=== PATIENT | female | born 1980 | race Hispanic/Latino ===

== ENCOUNTER 2018-10-22 09:41 | Emergency (ER) | payer SELFPAY ==
[2018-10-22 10:22] LABS: Absolute Lymphocytes (CBC) 2.4 K/uL (0.7-4.9); Absolute Monocytes 0.6 K/uL (0.1-1.3); Absolute Neutrophil 3.3 K/uL (1.8-8.0); Basophils % 0.9 % (0-1.3); Eosinophils % 2.8 % (0-4.4); Hematocrit 39.9 % (36.0-45.0); Lymphocytes % 36.3 % (15.3-44.8); MPV 7.6 fL (7.6-11.3); Monocytes % 8.7 % (3.3-12.3); RBC Red Blood Cell Count 4.42 M/uL (3.86-4.86)
[2018-10-22 10:36] LABS: Urine Blood TRACE (NEG); Urine Glucose NEGATIVE (NEG); Urine Protein NEGATIVE (NEG); Urine Specific Gravity 1.015 (1.005-1.030)
[2018-10-22 10:46] LABS: BUN Blood Urea Nitrogen 10 mg/dL (7-18); Bicarbonate 24 mmol/L (21-32); Glucose Level 91 mg/dL (74-106); NT PRO-BNP 35 pg/mL (<125); Potassium 3.9 mmol/L (3.5-5.1); Sodium Level 139 mmol/L (136-145); Troponin (Emerg Dept Use Only) < 0.02 ng/mL (0.0-0.045)
--- NOTE | 2018-10-22 11:15 | RAD REPORT ---
EXAM DESCRIPTION: Sarah Single View10/22/2018 10:59 am CLINICAL HISTORY: Chest pain COMPARISON: October 2017 FINDINGS: The lungs appear clear of acute infiltrate. The heart is normal size IMPRESSION: No acute abnormalities displayed
--- NOTE | 2018-10-22 12:03 | EKG ---
Test Date: 2018-10-22 Test Time: 09:46:05 Health And Physical Education Professor: MIKALA MEASUREMENT RESULTS: Intervals: Rate: 76 IA: 136 QRSD: 70 QT: 388 QTc: 436 [place]: P: 31 IA: 136 QRS: 26 T: 22 INTERPRETIVE STATEMENTS: Normal sinus rhythm Normal ECG Compared to ECG 11/05/2017 10:19:23 T-wave abnormality no longer present Electronically Signed On 10-22-18 12:03:15 ENGINEER SYSTEMS by Rajiv Wadsworth
--- NOTE | 2018-10-22 12:11 | ER ---
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 Transition of care: patient was not received from another setting of care. Onset of symptoms was October 22, 2018. Risk Assessment: Do you want to hurt yourself or someone else? Patient reports no desire to harm self or others. Initial Sepsis Screen: Does the patient meet any 2 criteria? No. Patient's initial sepsis screen is negative. Does the patient have a suspected source of infection? No. Patient's initial sepsis screen is negative. Care prior to arrival: None. 09:43 Method Of Arrival: Ambulatory 09:43 Acuity: MARCIA 3 Triage Assessment: 09:47 General: Appears in no apparent distress. uncomfortable, Behavior is cooperative, hj appropriate for age, anxious. Pain: Complains of pain in chest Pain currently is 6 out of 10 on a pain scale. Cardiovascular: Reports chest pain. 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 - Social history:: Smoking status: Patient uses tobacco products, Patient uses alcohol. - Ebola Screening: : Patient negative for fever greater than or equal to 101.5 degrees Fahrenheit, and additional compatible Ebola Virus Disease symptoms Patient denies exposure to infectious person Patient denies travel to an Ebola-affected area in the 21 days before illness onset. - Family history:: not pertinent. - Hospitalizations: : No recent hospitalization is reported. Screenin:49 Abuse screen: Denies threats or abuse. Denies injuries from another. Nutritional hj screening: No deficits noted. Tuberculosis screening: No symptoms or risk factors identified. Fall Risk None identified. Assessment: 09:50 Pain: Pain does not radiate. Pain began 1 day ago. hj 09:55 General: Appears in no apparent distress. comfortable, Behavior is calm, cooperative. rb1 Pain: Complains of pain in anterior aspect of left upper chest Pain does not radiate. Pain currently is 6 out of 10 on a pain scale. Pain began 1 day ago. Neuro: Level of Consciousness is awake, alert, obeys commands, Oriented to person, place, time, situation. Cardiovascular: Capillary refill < 3 seconds is brisk in bilateral fingers Rhythm is regular. Respiratory: Airway is patent Respiratory effort is even, unlabored, Respiratory pattern is regular, symmetrical. GI: No signs and/or symptoms were reported involving the gastrointestinal system. : No signs and/or symptoms were reported regarding the genitourinary system. Derm: Skin is dry, Skin is normal, Skin temperature is warm. Musculoskeletal: Range of motion: intact in all extremities. 10:25 Reassessment: Called cardiology EKG but there was no answer. Asked Debra to page rb1 them. 11:25 Reassessment: Patient appears in no apparent distress at this time. Patient and/or rb1 family updated on plan of care and expected duration. Pain level reassessed. Patient is alert, oriented x 3, equal unlabored respirations, skin warm/dry/pink. 12:20 Reassessment: Patient appears in no apparent distress at this time. Patient and/or rb1 family updated on plan of care and expected duration. Pain level reassessed. Patient is alert, oriented x 3, equal unlabored respirations, skin warm/dry/pink. Pain 4/10. Vital Signs: 09:48 BP 106 / 74; Pulse 87; Resp 18; Temp 97.4(TE); Pulse Ox 99% on R/A; Weight 72.57 kg; hj Height 5 ft. 4 in. (162.56 cm); Pain 6/10; 10:30 BP 107 / 66; Pulse 65; Resp 18; Pulse Ox 100% on R/A; rb1 11:30 BP 110 / 74; Pulse 69; Resp 17; Pulse Ox 100% on R/A; Pain 6/10; rb1 12:30 BP 109 / 77; Pulse 69; Resp 14; Pulse Ox 100% on R/A; Pain 4/10; rb1 09:48 Body Mass Index 27.46 (72.57 kg, 162.56 cm) hj ED Course: 09:42 Patient arrived in ED. as 09:46 Triage completed. hj 09:50 Arm band placed on right wrist. hj 09:50 Patient has correct armband on for positive identification. Placed in gown. Bed in low hj position. Call light in reach. Adult w/ patient. frog shaker on. Pulse ox on. NIBP on. 09:50 Patient maintains SpO2 saturation greater than 95% on room air. hj 09:52 Harriosn Pelayo MD is Attending Physician. rn 09:55 Laxmi Tyler, RN is Primary Nurse. rb1 10:09 EKG done, by diesel automotive technician. reviewed by Harrison Pelayo MD. at1 10:14 Initial lab(s) drawn, by vt, sent to lab. Inserted saline lock: 20 gauge in right dh3 antecubital area, using aseptic technique. Blood collected. 11:06 XRAY Chest (1 view) In Process Unspecified. EDMS 12:33 No provider procedures requiring assistance completed. IV discontinued, intact, rb1 bleeding controlled, No redness/swelling at site. Pressure dressing applied. Administered Medications: No medications were administered Outcome: 12:10 Discharge ordered by MD. rn 12:33 Discharged to home ambulatory, with family. rb1 12:33 Condition: stable 12:33 Discharge instructions given to patient, Instructed on discharge instructions, follow up and referral plans. Demonstrated understanding of instructions, follow-up care, Prescriptions given X none 12:34 Patient left the ED. 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 4 in.; BMI: 27.4; Pain 6/10; hj
--- NOTE | 2018-10-22 12:11 | EDPHYS ---
Physician Documentation [facility] Name: Michelle Jarrett Age: 38 yrs Sex: Female : 1980 Arrival Date: 10/22/2018 Time: 09:42 Bed 15 Private MD: ED Physician Harrison Pelayo HPI: 10/22 11:05 This 38 yrs old Female presents to ER via Ambulatory with complaints of Chest rn Pressure. 11:05 The patient or guardian reports chest pain that is located primarily in the anterior rn aspect of left upper chest. The pain does not radiate. Associated signs and symptoms: Pertinent positives: None. Pertinent negatives: abdominal pain, cough, diaphoresis, dizziness, headache, near syncope, palpitations, recent travel, syncope, vomiting. The chest pain is described as a pressure. Duration: The patient or guardian reports multiple episodes, that are intermittent. Modifying factors: The symptoms are alleviated by nothing. the symptoms are aggravated by nothing. Severity of pain: At its worst the pain was mild in the emergency department the pain is unchanged. The patient has not experienced similar symptoms in the past. Reports chest pressure, began yesterday, intermittent, not assoc with fever/cough/sob/abd pain, reports feels anxious, nothing makes it better or worse, discomfort lasts for hours. . 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 - Social history:: Smoking status: Patient uses tobacco products, Patient uses alcohol. - Ebola Screening: : Patient negative for fever greater than or equal to 101.5 degrees Fahrenheit, and additional compatible Ebola Virus Disease symptoms Patient denies exposure to infectious person Patient denies travel to an Ebola-affected area in the 21 days before illness onset. - Family history:: not pertinent. - Hospitalizations: : No recent hospitalization is reported. ROS: 11:05 Constitutional: Negative for fever, chills, and weight loss, Eyes: Negative for injury, rn pain, redness, and discharge, Cardiovascular: Negative for palpitations Respiratory: Negative for shortness of breath, cough, wheezing, and pleuritic chest pain, Abdomen/GI: Negative for abdominal pain, nausea, vomiting, diarrhea, and constipation, MS/Extremity: Negative for injury and deformity, Skin: Negative for injury, rash, and discoloration, Neuro: Negative for headache, weakness, numbness, tingling, and seizure. Exam: 10:02 ECG was reviewed by the Attending Physician. rn 11:05 Constitutional: This is a well developed, well nourished patient who is awake, alert, rn and in no acute distress. Sitting upright on edge of bed. Head/Face: Normocephalic, atraumatic. Eyes: Pupils equal round and reactive to light, extra-ocular motions intact. Lids and lashes normal. Conjunctiva and sclera are non-icteric and not injected. Cornea within normal limits. Periorbital areas with no swelling, redness, or edema. Cardiovascular: Regular rate and rhythm with a normal S1 and S2. No gallops, murmurs, or rubs. No JVD. No pulse deficits. Respiratory: Lungs have equal breath sounds bilaterally, clear to auscultation. No rales, rhonchi or wheezes noted. No increased work of breathing, no retractions or nasal flaring. Abdomen/GI: Soft, non-tender MS/ Extremity: Pulses equal, no cyanosis. Neurovascular intact. Full, normal range of motion. Equal circumference. Neuro: Awake and alert, GCS 15, oriented to person, place, time, and situation. Cranial nerves II-XII grossly intact. Motor strength 5/5 in all extremities. Sensory grossly intact. Vital Signs: 09:48 BP 106 / 74; Pulse 87; Resp 18; Temp 97.4(TE); Pulse Ox 99% on R/A; Weight 72.57 kg; hj Height 5 ft. 4 in. (162.56 cm); Pain 6/10; 10:30 BP 107 / 66; Pulse 65; Resp 18; Pulse Ox 100% on R/A; rb1 11:30 BP 110 / 74; Pulse 69; Resp 17; Pulse Ox 100% on R/A; Pain 6/10; rb1 12:30 BP 109 / 77; Pulse 69; Resp 14; Pulse Ox 100% on R/A; Pain 4/10; rb1 09:48 Body Mass Index 27.46 (72.57 kg, 162.56 cm) MDM: 09:52 Patient medically screened. rn 12:08 Differential diagnosis: acute myocardial infarction, acute pericarditis, chest wall rn pain, costochondritis, esophagitis, gastritis, gastroesophageal reflux disease (GERD), pleurisy, pneumothorax. Data reviewed: vital signs, nurses notes, lab test result(s), EKG, radiologic studies, plain films, and as a result, I will discharge patient. Counseling: I had a detailed discussion with the patient and/or guardian regarding: the historical points, exam findings, and any diagnostic results supporting the discharge/admit diagnosis, lab results, radiology results, the need for outpatient follow up, to return to the emergency department if symptoms worsen or persist or if there are any questions or concerns that arise at home. Response to treatment: the patient's symptoms have mildly improved after treatment, and as a result, I will discharge patient. Special discussion: Based on the patient's history, exam, and Dx evaluation, there is no indication for emergent intervention or inpatient Tx. It is understood by the patient/guardian that if the Sx's persist or worsen they need to return immediately for re-evaluation. I discussed with the patient/guardian in detail that at this point there is no indication for admission to the hospital. It is understood, however, that if the symptoms persist or worsen the patient needs to return immediately for re-evaluation. 12:08 ED course: Neg w/u here, will dc home with pcp f/u for further care, normal renal rn function and normal thyroid studies, no clear etiology of chest pain but trop neg and normal ecg. . 10/22 10:02 Order name: CBC with Diff; Complete Time: : rn 10/22 10:02 Order name: Basic Metabolic Panel; Complete Time: rn 10/22 10:02 Order name: Troponin (emerg Dept Use Only); Complete Time: : rn 10/22 10:02 Order name: N-Terminal Pro-brain Natriuretic Peptide; Complete Time: : rn 10/22 10:02 Order name: TSH; Complete Time: rn 10/22 10:02 Order name: T4 Free; Complete Time: : rn 10/22 09:51 Order name: EKG; Complete Time: 09:51 hj 10/22 10:02 Order name: IV Start; Complete Time: 10:17 rn 10/22 10:02 Order name: XRAY Chest (1 view); Complete Time: 11:48 rn 10/22 10:04 Order name: Urine Dipstick--Ancillary (enter results); Complete Time: 11:08 sg 10/22 10:04 Order name: Urine --Ancillary (enter results); Complete Time: 11:08 sg EC:02 Rate is 76 beats/min. Rhythm is regular. QRS [place] is Normal. TN interval is normal. QRS rn interval is normal. QT interval is normal. No Q waves. T waves are Normal. No ST changes noted. Clinical impression: Normal ECG. Interpreted by me. Administered Medications: No medications were administered Disposition: 10/22/18 12:10 Discharged to Home. Impression: Chest pain, unspecified. - Condition is Stable. - Discharge Instructions: Nonspecific Chest Pain. - Medication Reconciliation Form, Thank You Letter, Antibiotic Education, Prescription Opioid Use form. - Follow up: Private Physician; When: As needed; Reason: Recheck today's complaints, Re-evaluation by your physician. - Problem is new. - Symptoms have improved. Signatures: Dispatcher [employer] EDMS Rhonda Trinidad, COMIC WRITER-C COMIC WRITER-Csnw Harrison Pelayo MD MD rn Joaquin, Henry, Laxmi Taylor RN, CAROLYN RN rb1 Corrections: (The following items were deleted from the chart) 12:34 12:10 10/22/2018 12:10 Discharged to Home. Impression: Chest pain, unspecified. rb1 Condition is Stable. Forms are Medication Reconciliation Form, Thank You Letter, Antibiotic Education, Prescription Opioid Use. Follow up: Private Physician; When: As needed; Reason: Recheck today's complaints, Re-evaluation by your physician. Problem is new. Symptoms have improved. rn
== END 2018-10-22 12:34 | disposition home or self-care (01) ==
LOC: ER 09:41
DX: R07.9 Chest pain, unspecified (principal); Z72.0 Tobacco use
CPT/HCPCS: 36415; 71045; 80048; 81003; 81025; 83880; 84439; 84443; 84484; 85025; 93005; 99285

== ENCOUNTER 2022-04-20 04:09 | Emergency (ER) | payer SELFPAY ==
[2022-04-20 04:40] LABS: Urine Blood Trace-intact (Negative); Urine Glucose Negative (Negative); Urine Protein Trace (Negative); Urine Specific Gravity >=1.030 (1.005-1.030)
[2022-04-20 04:44] LABS: Absolute Lymphocytes (CBC) 2.9 K/uL (0.7-4.9); Hematocrit 40.3 % (36.0-45.0); Lymphocytes % 39.5 % (15.3-44.8); MCV 87.7 fL (80-100); MPV 7.5 fL (7.6-11.3)
[2022-04-20] MEDS ORDERED: ONDANSETRON 4 MG/2 ML VIAL ONE (04:49)
[2022-04-20] MEDS ORDERED: MAGNES/ALUMIN/SIMET 30ML UCUP ONE (04:49)
[2022-04-20] MEDS ORDERED: LIDOCAINE VISCOUS 2% SOLN 15 ML UDC ONE (04:50)
[2022-04-20] MEDS ORDERED: FAMOTIDINE 20 MG/2 ML VIAL IV ONE (04:50)
[2022-04-20 05:02] LABS: Albumin 3.8 g/dL (3.4-5.0); Bilirubin Total 0.2 mg/dL (0.2-1.0); Potassium 3.9 mmol/L (3.5-5.1); Protein, Total 7.8 g/dL (6.4-8.2)
--- NOTE | 2022-04-20 07:08 | ER ---
Nurse's Notes [facility] Name: Mayi Jarrett Age: 42 yrs Sex: Female : 1980 Arrival Date: 04/20/2022 Time: 04:11 Bed 6 Private MD: Diagnosis: Upper abdominal pain, unspecified;Other cholelithiasis without obstruction Presentation: 04/20 04:31 Chief complaint: Patient states: i have stomach pain and I've been vomiting for 2 days. kd3 I have not had a fever or diarrhea. the pain starts in the middle of my upper stomach and goes around to the right side. Coronavirus screen: Vaccine status: Patient reports receiving the 2nd dose of the covid vaccine. Ebola Screen: No symptoms or risks identified at this time. Initial Sepsis Screen: Does the patient meet any 2 criteria? No. Patient's initial sepsis screen is negative. Does the patient have a suspected source of infection? No. Patient's initial sepsis screen is negative. Risk Assessment: Do you want to hurt yourself or someone else? Patient reports no desire to harm self or others. Onset of symptoms was April 20, 2022. 04:31 Method Of Arrival: Ambulatory kd3 04:31 Acuity: MARCIA 3 kd3 Triage Assessment: 04:33 General: Appears uncomfortable, Behavior is calm, cooperative. Pain: Complains of pain kd3 in right upper quadrant and epigastric area. Neuro: Level of Consciousness is awake, alert, obeys commands, Oriented to person, place, time, situation. GI: Bowel sounds present X 4 quads. 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 - Social history:: Smoking status: unknown. - Family history:: not pertinent. - Hospitalizations: : No recent hospitalization is reported. Screenin:34 Abuse screen: Denies threats or abuse. Denies injuries from another. Nutritional kd3 screening: No deficits noted. Tuberculosis screening: No symptoms or risk factors identified. Fall Risk IV access (20 points). Assessment: 04:35 GI: Abdomen is tender to palpation in right upper quadrant. kd3 04:35 GI: Reports vomiting. kd3 07:20 Reassessment: No changes from previously documented assessment. Patient and/or family kr3 updated on plan of care and expected duration. Pain level reassessed. Vital Signs: 04:31 BP 134 / 94; Pulse 86; Resp 16; Temp 97.4(TE); Pulse Ox 100% on R/A; Weight 65.77 kg; kd3 Height 5 ft. 3 in. (160.02 cm); 04:52 BP 115 / 59; Pulse 65; Resp 18; Pulse Ox 98% on R/A; kd3 07:18 BP 119 / 72; Pulse 67; Resp 18; Pulse Ox 98% on R/A; ll1 04:31 Body Mass Index 25.69 (65.77 kg, 160.02 cm) kd3 ED Course: 04:11 Patient arrived in ED. mr 04:11 Harrison Pelayo MD is Attending Physician. rn 04:12 Stacy Abad, CAROLYN is Primary Nurse. kd3 04:31 SARS-COV-2 RT PCR (Document "Date of Onset" if Symptomatic) Sent. kd3 04:33 Triage completed. kd3 04:33 Arm band placed on right wrist. kd3 04:34 No provider procedures requiring assistance completed. Inserted saline lock: 20 gauge kd3 in right antecubital area, using aseptic technique. Blood collected. 04:34 Patient has correct armband on for positive identification. Bed in low position. kd3 05:27 Abdomen Limited US In Process Unspecified. EDMS 05:50 CT Abd/Pelvis - IV Contrast Only In Process Unspecified. EDMS 07:07 Farzad Fink MD is Referral Physician. rn 07:56 IV discontinued, intact, bleeding controlled, No redness/swelling at site. Pressure kr3 dressing applied. Administered Medications: 04:50 Drug: Pepcid (famotidine) 20 mg Route: IVP; Site: right antecubital; kd3 09:49 Follow up: Response: No adverse reaction kr3 04:50 Drug: GI Cocktail without - (Maalox Suspension 30 ml, Lidocaine Liquid 2 % 15 kd3 ml) Route: PO; 09:49 Follow up: Response: No adverse reaction kr3 04:51 Drug: Zofran (Ondansetron) 4 mg Route: IVP; Site: right antecubital; kd3 09:49 Follow up: Response: No adverse reaction kr3 07:15 Drug: morphine 4 mg Route: IVP; Infused Over: 4 mins; Site: right antecubital; ll1 09:44 Follow up: Response: No adverse reaction kr3 Medication: 04:35 VIS not applicable for this client. kd3 Outcome: 07:08 Discharge ordered by . rn 07:55 Discharged to home ambulatory. kr3 07:55 Discharge instructions given to patient, Instructed on discharge instructions, follow up and referral plans. medication usage, Demonstrated understanding of instructions, follow-up care, medications, Prescriptions given X 2. 07:57 Patient left the ED. kr3 Signatures: Dispatcher [employer] EDUT Marva MorganHarrison phillips MD MD rn Lewis, Lynsay, RN RN [email or web address] Stacy Abad RN RN kd3 Mirian Geller RN RN kr3 Corrections: (The following items were deleted from the chart) 09:45 09:44 Reassessment: No changes from previously documented assessment. Patient and/or kr3 family updated on plan of care and expected duration. Pain level reassessed. kr3 09:46 09:42 Condition: stable kr3 kr3 09:46 09:42 Discharge instructions given to patient, Instructed on discharge instructions, kr3 follow up and referral plans. medication usage, Demonstrated understanding of instructions, follow-up care, medications, Prescriptions given X 2, kr3 09:47 09:43 IV discontinued, intact, bleeding controlled, No redness/swelling at site. kr3 Pressure dressing applied, kr3 :47 09:42 Discharged to home ambulatory, kr3 kr3 :47 09:42 Discharge instructions given to patient, Instructed on discharge instructions, kr3 follow up and referral plans. medication usage, Demonstrated understanding of instructions, follow-up care, medications, Prescriptions given X 2, kr3 09:47 07:55 Condition: stable kr3 kr3 09:48 07:30 Reassessment: No changes from previously documented assessment. Patient and/or kr3 family updated on plan of care and expected duration. Pain level reassessed. kr3
--- NOTE | 2022-04-20 07:08 | EDPHYS ---
Physician Documentation [facility] Name: Mayi Jarrett Age: 42 yrs Sex: Female : 1980 Arrival Date: 04/20/2022 Time: 04:11 Bed 6 Private MD: ED Physician Harrison Pelayo HPI: 04/20 04:25 This 42 yrs old Female presents to ER via Unassigned with complaints of rn Abdominal Pain, Vomiting. 04:25 The patient presents to the emergency department with nausea, vomiting, abdominal pain, rn of the epigastric area and right upper quadrant, described as achy, and does not radiate. Onset: The symptoms/episode began/occurred 2 day(s) ago. Possible causes: unknown. The symptoms are aggravated by pressure, The symptoms are alleviated by nothing. Associated signs and symptoms: Pertinent positives: abdominal pain, nausea, vomiting, Pertinent negatives: fever, GI bleeding. Severity of symptoms: At their worst the symptoms were moderate in the emergency department the symptoms are unchanged. The patient has experienced a previous episode. The patient has not recently seen a physician. Pt reports 2 days of epigastric and RUQ tenderness, + vomiting. No diarrhea. No fever.. 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 - Social history:: Smoking status: unknown. - Family history:: not pertinent. - Hospitalizations: : No recent hospitalization is reported. ROS: 04:25 Constitutional: Negative for fever, and weight loss, Eyes: Negative for injury, pain, rn redness, and discharge, Neck: Negative for injury, pain, and swelling, Respiratory: Negative for shortness of breath, cough, wheezing, and pleuritic chest pain, Abdomen/GI: Negative for diarrhea, and constipation, Back: Negative for injury and pain, MS/Extremity: Negative for injury and deformity, Skin: Negative for injury, rash, and discoloration, Neuro: Negative for headache, weakness, numbness, tingling, and seizure. Exam: 04:25 Constitutional: This is a well developed, well nourished patient who is awake, alert, rn and in no acute distress. Ambulatory to room without difficulty or assistance. Head/Face: Normocephalic, atraumatic. Cardiovascular: Regular rate and rhythm. No pulse deficits. Respiratory: No increased work of breathing, no retractions or nasal flaring. Abdomen/GI: soft, + tender RUQ and epigastrium Skin: Warm, dry MS/ Extremity: Pulses equal, no cyanosis. Neurovascular intact. Full, normal range of motion. Equal circumference. Neuro: Awake and alert, GCS 15 Vital Signs: 04:31 BP 134 / 94; Pulse 86; Resp 16; Temp 97.4(TE); Pulse Ox 100% on R/A; Weight 65.77 kg; kd3 Height 5 ft. 3 in. (160.02 cm); 04:52 BP 115 / 59; Pulse 65; Resp 18; Pulse Ox 98% on R/A; kd3 07:18 BP 119 / 72; Pulse 67; Resp 18; Pulse Ox 98% on R/A; ll1 04:31 Body Mass Index 25.69 (65.77 kg, 160.02 cm) kd3 MDM: 04:11 Patient medically screened. rn 07:03 Differential diagnosis: Nonspecific abd pain, gastritis, cholecystitis, pancreatitis, rn viral gastroenteritis, gastroenteritis. Data reviewed: vital signs, nurses notes, lab test result(s), radiologic studies, CT scan, ultrasound, and as a result, I will discharge patient. Counseling: I had a detailed discussion with the patient and/or guardian regarding: the historical points, exam findings, and any diagnostic results supporting the discharge/admit diagnosis, lab results, radiology results, the need for outpatient follow up, to return to the emergency department if symptoms worsen or persist or if there are any questions or concerns that arise at home. Response to treatment: the patient's symptoms have markedly improved after treatment, and as a result, I will discharge patient. Special discussion: Based on the patient's Hx, exam, and Dx evaluation, there is no indication for emergent surgery or inpatient Tx. It is understood by the patient/guardian that if the Sx's persist or worsen they need to return immediately for re-evaluation. I discussed with the patient/guardian in detail that at this point there is no indication for admission to the hospital. It is understood, however, that if the symptoms persist or worsen the patient needs to return immediately for re-evaluation. Based on the history and exam findings, there is no indication for further emergent testing or inpatient evaluation. I discussed with the patient/guardian the need to see the general surgeon for further evaluation of the symptoms. ED course: Pt with cholelithiasis, no cholecystitis, feels better, will dc home with surgical f/u and return precautions understood.. 04/20 04:21 Order name: CBC with Diff; Complete Time: 06: rn 04/20 04:21 Order name: CMP; Complete Time: 06: rn 04/20 04:21 Order name: Lipase; Complete Time: 06: rn 04/20 04:21 Order name: SARS-COV-2 RT PCR (Document "Date of Onset" if Symptomatic); Complete Time: rn 06:04/20 04:41 Order name: Urine Dipstick-Ancillary; Complete Time: 06:31 EDMS 04/20 04:21 Order name: Abdomen Limited US rn 04/20 04:21 Order name: CT Abd/Pelvis - IV Contrast Only rn 04/20 04:21 Order name: IV Saline Lock; Complete Time: 04:25 rn 04/20 04:21 Order name: Labs collected and sent; Complete Time: 04:26 rn 04/20 04:21 Order name: Urine Dipstick-Ancillary (obtain specimen); Complete Time: 04:40 rn 04/20 04:21 Order name: Urine Test (obtain specimen); Complete Time: 04:40 rn Administered Medications: 04:50 Drug: Pepcid (famotidine) 20 mg Route: IVP; Site: right antecubital; kd3 09:49 Follow up: Response: No adverse reaction kr3 04:50 Drug: GI Cocktail without - (Maalox Suspension 30 ml, Lidocaine Liquid 2 % 15 kd3 ml) Route: PO; 09:49 Follow up: Response: No adverse reaction kr3 04:51 Drug: Zofran (Ondansetron) 4 mg Route: IVP; Site: right antecubital; kd3 09:49 Follow up: Response: No adverse reaction kr3 07:15 Drug: morphine 4 mg Route: IVP; Infused Over: 4 mins; Site: right antecubital; ll1 09:44 Follow up: Response: No adverse reaction kr3 Disposition Summary: 04/20/22 07:08 Discharge Ordered Location: Home rn Problem: new rn Symptoms: have improved rn Condition: Stable rn Diagnosis - Upper abdominal pain, unspecified rn - Other cholelithiasis without obstruction rn Followup: rn - With: - When: As needed - Reason: Recheck today's complaints, Re-evaluation by your physician Discharge Instructions: - Discharge Summary Sheet rn - Abdominal Pain, Adult rn - Cholelithiasis rn Forms: - Medication Reconciliation Form rn - Thank You Letter rn - Antibiotic education intern - Prescription Opioid Use rn Prescriptions: - ondansetron 4 mg Oral tablet,disintegrating - take 1 tablet by ORAL route every 8 hours for 1 day; 15 tablet; Refills: 0, rn Product Selection Permitted - Tramadol 50 mg Oral Tablet - take 1 tablet by ORAL route every 8 hours as needed; 12 tablet; Refills: 0, rn Product Selection Permitted Signatures: Dispatcher [employer] Harrison Mcdonald MD MD rn Lewis, Lynsay, RN RN ll1 Stacy Abad, CAROLYN RN kd3 Mirian Geller RN kr3
[2022-04-20] MEDS ORDERED: MORPHINE 4 MG/ML SYR ONE (07:16)
[2022-04-20 08:11] VITALS: TEMP 97.4
[2022-04-20 08:15] VITALS: O2SAT 98
[2022-04-20 08:16] VITALS: BP 119/72
--- NOTE | 2022-04-20 13:52 | RAD REPORT ---
EXAM DESCRIPTION: US - Abdomen Exam Limited - 04/20/2022 5:25 am CLINICAL HISTORY: 42 years Female ABD PAIN TECHNIQUE: Limited sonographic imaging of the right upper quadrant was performed to further evaluate the gallbladder on 04/20/2022 at 5: 20 AM. COMPARISON: None. FINDINGS: The gallbladder is well distended.There are shadowing echogenic foci within the gallbladde r lumen consistent with gallstones. The gallbladder wall measures approximately 1.6 mm. There is no e vidence of pericholecystic fluid. The technologist did not detect a positive Sonographic Booth sign. The common bile duct measures approximately 3.6 mm. There is no evidence of biliary ductal dilatatio n. IMPRESSION: Cholelithiasis without evidence of biliary ductal dilatation, gallbladder wall thickenin g or pericholecystic fluid. Electronically signed by: Sadie Zamarripa DO 04/20/2022 6:52 AM CDT Due to temporary technical issues with the PACS/Fluency reporting system, reports are being signed by the in house radiologist without review as a courtesy to ensure prompt reporting. The interpreting r adiologist is fully responsible for the content of the report.
--- NOTE | 2022-04-20 13:55 | RAD REPORT ---
EXAM DESCRIPTION: CT - Abdomen Pelvis W Contrast - 04/20/2022 7:06 am CLINICAL HISTORY: 42 years Female Abdominal pain, acute, nonlocalized TECHNIQUE: Axial CT imaging of the abdomen and pelvis was performed following the administration of intravenous contrast.. Oral contrast was not administered. Sagittal and coronal reconstructed image s were then performed. The CT study is performed according to ALARA (as low as reasonably achievabl e) or ALARA/IMAGE GENTLY, with automatic adjustment of mA and/or kV according to patient size. Performed on: 04/20/2022 at 5:46 AM. Comparison: Gallbladder ultrasound performed on 04/20/2022 at 5:20 AM FINDINGS: Lung bases: The lung bases are clear. Liver: The liver is normal in size and configuration. No focal hepatic abnormalities are identified. Liver attenuation is within normal limits. The hepatic and portal veins are patent. Spleen: The spleen is normal is size, configuration and attenuation. Gallbladder and bile duct: The gallbladder is well distended. There is increased density within the neck of the gallbladder consistent with cholelithiasis. There is no biliary ductal dilatation. Pancreas: The pancreas is grossly normal in size and configuration. Adrenal Glands: The adrenal glands are normal in size and configuration. Kidneys: The kidneys are normal in size and configuration. There is no evidence of hydronephrosis. Th ere is no evidence of nephrolithiasis. No definite solid or cystic renal mass lesions are identified. Stomach: The stomach is grossly normal. There is no definite hiatal hernia. Bowel: The bowel gas pattern is non specific and non obstructive. Appendix: The appendix is normal. Free air: There is no evidence of free air. Free fluid: There is no evidence of free fluid. Vasculature: The aorta is normal in caliber and contour. The inferior vena cava is grossly unremarkab le. Lymphadenopathy: No pathologic lymphadenopathy is identified. Bladder: The bladder is well distended and smooth in contour. Reproductive: The uterus is enlarged and bulky in contour consistent with a myomatous uterus. There i s a large heterogeneous mass arising from the right lateral body of the uterus measuring approximatel y 8.2 x 7.2 x 6.2 cm most consistent with a large dominant fibroid. Bones: No acute osseous abnormalities are identified. Soft tissues: No acute soft tissue abnormalities are identified. IMPRESSION: 1. No evidence of acute intra-abdominal or intrapelvic pathology. 2. Cholelithiasis without evidence of biliary ductal dilatation. 3. Enlarged myomatous uterus. There is a large heterogeneous mass arising from the right lateral soni dy of the uterus measuring approximately 8.2 x 7.2 x 6.2 cm most consistent with a large dominant fib roid. Electronically signed by: Sadie Zamarripa DO 04/20/2022 6:59 AM CDT Due to temporary technical issues with the PACS/Fluency reporting system, reports are being signed by the in house radiologist without review as a courtesy to ensure prompt reporting. The interpreting r adiologist is fully responsible for the content of the report.
== END 2022-04-20 07:57 | disposition home or self-care (01) ==
LOC: ER 04:09
DX: K80.80 Other cholelithiasis without obstruction (principal); Z20.822 Contact with and (suspected) exposure to COVID-19
CPT/HCPCS: 36415; 74177; 76705; 80053; 81003; 83690; 85025; J2405; J3490; Q9967; U0003